=== PATIENT | female | born 1995 | race Hispanic/Latino ===

== ENCOUNTER 2018-03-13 12:25 | Emergency (ER) | payer OTHER ==
[~2018-03-13] VITALS: Ht 157.5 cm; Wt 80.7 kg
[2018-03-13 14:34] VITALS: BP 130/75
== END 2018-03-13 14:48 | disposition home or self-care (01) ==
LOC: FSED 12:25
DX: R55 Syncope and collapse (principal); F31.9 Bipolar disorder, unspecified
CPT/HCPCS: 80048; 80307; 81003; 85025; 99284